=== PATIENT | male | born 1985 | race Caucasian/White ===

== ENCOUNTER 2025-03-25 10:02 | Inpatient (IN) | payer OTHER ==
[2025-03-25 10:21] VITALS: BMI 18.0
[2025-03-25] MEDS ORDERED: MAGNESIUM HYDROX 2400MG/30ML ORAL SUSPENSION 30 ML CUP PO PRN (10:31)
[2025-03-25] MEDS ORDERED: POLYETHYLENE GLYCOL (HEALTHYLAX) 3350 17 GM PACKET PO PRN (10:31)
[2025-03-25] MEDS ORDERED: MAG HYDROX/AL HYDROX/SIMETH 30 ML UNIT-DOSE CUP PO PRN (10:31)
[2025-03-25] MEDS ORDERED: ONDANSETRON *ODT* 4 MG TABLET SL PRN (10:31)
[2025-03-25] MEDS ORDERED: NALOXONE (NARCAN) HCL 4 MG/0.1 ML SPRAY NS PRN (10:31)
[2025-03-25] MEDS ORDERED: BISMUTH SUBSALICYLATE 524 MG/30 ML PO PRN (10:31)
[2025-03-25] MEDS ORDERED: LOPERAMIDE HCL 2 MG CAPSULE PO PRN (10:31)
[2025-03-25] MEDS ORDERED: DICYCLOMINE HCL 10 MG CAPSULE PO PRN (10:31)
[2025-03-25] MEDS ORDERED: ACETAMINOPHEN 325 MG TABLET (FP) PO PRN (10:31)
[2025-03-25] MEDS ORDERED: BENZOCAINE/MENTHOL (CHLORASEPTIC ) LOZENGE MM PRN (10:31)
[2025-03-25] MEDS ORDERED: BENZONATATE 200 MG CAPSULE PO PRN (10:31)
[2025-03-25] MEDS ORDERED: guaiFENesin 600 MG TABLET.ER (FP) PO PRN (10:31)
[2025-03-25] MEDS ORDERED: IBUPROFEN 400 MG TABLET (FP) PO PRN (10:31)
[2025-03-25] MEDS ORDERED: PRENATAL VITAMINS W/ FOLIC ACID TABLET (FP) PO ONE (11:43)
[2025-03-25] MEDS ORDERED: methaDONE HCL 10 MG TABLET (FOR DETOX USE ONLY) ONE (11:43)
[2025-03-25] MEDS: PRENATAL VITAMINS W/ FOLIC ACID TABLET (FP) PO SCH (11:46)
[2025-03-25] MEDS: methaDONE HCL 10 MG TABLET PO ONE (11:46)
[2025-03-25] MEDS: cloNIDine HCL 0.1 MG TABLET PO SCH (13:20)
[2025-03-25] MEDS: CLINDAMYCIN HCL 150 MG CAPSULE (FP) PO SCH (13:21)
[2025-03-25] MEDS: METHOCARBAMOL 500 MG TABLET PO PRN (17:49)
[2025-03-25] MEDS: IBUPROFEN 600 MG TABLET (FP) PO PRN (17:50)
[2025-03-25] MEDS: THIAMINE 100 MG TABLET PO SCH (22:48)
[2025-03-25] MEDS: MELATONIN 5 MG TABLETS PO SCH (22:49)
[2025-03-25] MEDS: CLOTRIMAZOLE 1% CREAM TP SCH (22:50)
[2025-03-26] MEDS: GABAPENTIN 300 MG CAPSULE PO SCH (10:32)
[2025-03-26] MEDS: DIVALPROEX SODIUM 500 MG TABLET E.C. PO SCH (10:32)
[2025-03-26] MEDS: TOPIRAMATE 25 MG TABLET PO SCH (10:35)
[2025-03-26] MEDS: methaDONE HCL 10 MG TABLET PO ONE (10:35)
[2025-03-26] MEDS: NICOTINE 14 MG/24 HOURS TOPICAL PATCH TD SCH (10:36)
[2025-03-26] MEDS: NICOTINE POLACRILEX 4 MG GUM BUC PRN (10:47)
[2025-03-26] MEDS: hydrOXYzine PAMOATE 25 MG CAPSULE (FP) PO PRN (17:33)
[2025-03-26] MEDS: QUEtiapine FUMARATE 50 MG TABLET PO SCH (22:07)
[2025-03-27] MEDS: methaDONE HCL 10 MG TABLET PO ONE (10:01)
[2025-03-27] MEDS: cloNIDine HCL 0.1 MG TABLET PO PRN (17:15)
[2025-03-28] MEDS: methaDONE HCL 40 MG DISPERSABLE TABLET PO ONE (09:50)
[2025-03-29] MEDS: methaDONE 40 MG, methaDONE 10 MG PO ONE (09:11)
[2025-03-29 15:11] LABS: ABSOLUTE IMMATURE GRANULOCYTES 0.07 x10^3/uL (0.0-0.031); BASOPHILS # 0.03 x10^3/uL (0.01-0.08); EOSINOPHIL % 0.2 % (0.8-7.0); EOSINOPHILS # 0.01 x10^3/uL (0.04-0.54); HEMATOCRIT 43.9 % (40.1-51.0); HEMOGLOBIN 14.5 g/dL (13.7-17.5); MEAN CELL VOLUME 88.7 fl (79.0-92.2); MEAN PLT VOLUME 11.1 fl (9.4-12.4); MONOCYTE # 0.54 x10^3/uL (0.30-0.82); MONOCYTE % 10.4 % (5.3-12.2); PLATELET COUNT 252 x10^3/uL (163-337); RDW 12.4 % (12.0-15.6)
[2025-03-29 15:16] LABS: CALCIUM 9.4 mg/dL (8.5-10.1); POTASSIUM 4.2 mmol/L (3.5-5.1)
[2025-03-29 15:20] LABS: ALBUMIN 3.6 g/dl (3.4-5.0)
[2025-03-29 15:21] LABS: BLOOD UREA NITROGEN 11.2 mg/dL (7-18)
[2025-03-29 15:24] LABS: BILIRUBIN,TOTAL 0.2 mg/dL (0.2-1)
[2025-03-29 15:26] LABS: TOT PROT 6.6 g/dl (6.4-8.2)
[2025-03-29 20:44] VITALS: RESP 16
[2025-03-30] MEDS: methaDONE 40 MG, methaDONE 20 MG PO ONE (10:05)
[2025-03-30 11:16] VITALS: BP 131/84; PULSE 89; TEMP 97.7
== END 2025-03-30 10:48 | disposition home or self-care (01) | DRG 773 ==
LOC: YASAS 10:02 → Y6N 11:26
PROVIDERS: ADMIT Allergy & Immunology; ATTEND Allergy & Immunology
PROC: HZ2ZZZZ Detoxification Services for Substance Abuse Treatment (ICD-10-PCS; principal; 2025-03-25)
DX: F11.23 Opioid dependence with withdrawal (principal); F14.20 Cocaine dependence, uncomplicated; F13.20 Sedative, hypnotic or anxiolytic dependence, uncomplicated; F16.20 Hallucinogen dependence, uncomplicated; F12.20 Cannabis dependence, uncomplicated; F17.210 Nicotine dependence, cigarettes, uncomplicated; F31.9 Bipolar disorder, unspecified; F19.280 Other psychoactive substance dependence with psychoactive substance-induced anxiety disorder; F19.282 Other psychoactive substance dependence with psychoactive substance-induced sleep disorder; B35.3 Tinea pedis; L03.119 Cellulitis of unspecified part of limb; Z86.19 Personal history of other infectious and parasitic diseases; Z59.00 Homelessness unspecified
CPT/HCPCS: 36415; 80053; 80305; 80307; 85025; 93005; 93010